=== PATIENT | female | born 1965 | race Caucasian/White ===

== ENCOUNTER → 2016-07-08 | Day surgery (SDC) | payer OTHER ==
[~2016-07-08] VITALS: Ht 162.6 cm; Wt 66.0 kg
[~2016-07-08] MED LIST: 0.9% Sodium Chloride 1,000 ML IV SCH; ACET1TAB12 PO; Sodium Chloride LOK Flush 10 mL Syringe IV PRN; fentaNYL-PF 50 mCg/mL 2 mL Inj IVPUSH PRN
[2016-07-08 13:44] VITALS: BP 112/75; PULSE 71; RESP 16; O2SAT 97
[2016-07-08 14:55] VITALS: BP 99/64; PULSE 71; RESP 16; O2SAT 98
[2016-07-08 15:15] VITALS: BP 96/63; PULSE 68; RESP 16; O2SAT 98
[2016-07-08 15:32] VITALS: BP 96/63; PULSE 72; RESP 12; O2SAT 100
--- NOTE | 2016-07-09 00:15 | ENDO ---
[address] [address] ENDOSCOPY PROCEDURE PATIENT: KATERIN ROUSE : 1965 MR#: [id number] ADMIT: 07/08/2016 JOB ID: [id number] PRIMARY PROVIDER: EDELMIRA Resendiz PROCEDURE: Colonoscopy. INDICATIONS: A 51-year-old female who reports for colon cancer screening. EQUIPMENT: PCF-H180-AL. SEDATION: 3.5 mg Versed, 50 mcg fentanyl. COMPLICATIONS: None identified. BOWEL PREPARATION: Excellent. PROCEDURAL INFORMATION: After the risks and benefits were explained, written and verbal informed consent was obtained. The patient was brought into the endoscopy suite and placed into the left lateral decubitus position. Sedation was achieved using the above-stated medications with the addition of oxygen via nasal cannula. A digital rectal examination was accomplished. Mild internal and external nonbleeding, nonthrombosed hemorrhoids were identified. The scope was introduced into the rectum and advanced under direct visualization to the level of the cecum, as identified by the appendiceal orifice and ileocecal valve. The scope was slowly withdrawn to carefully examine the mucosa for any defects or lesions. Retroflexed views were avoided in the rectum. Multiple direct views were made through the dentate line for exclusion of pathology. The colon was decompressed, the scope removed the patient who tolerated the procedure well. FINDINGS: No significant polyps, mass lesions, or inflammatory features identified throughout. ENDOSCOPIC DIAGNOSES: 1. Hemorrhoids. 2. Otherwise visually unremarkable colonoscopy to cecum. RECOMMENDATIONS: Repeat colonoscopy 10 years' time, sooner should symptoms warrant. CC: EDELMIRA Resendiz
== END | disposition home or self-care (01) ==
LOC: END 00:30
PROVIDERS: ATTEND Internal Medicine Gastroenterology
DX: Z12.11 Encounter for screening for malignant neoplasm of colon (principal); K64.4 Residual hemorrhoidal skin tags; K64.8 Other hemorrhoids
CPT/HCPCS: G0121; G0500; J2250; J3010; J7030